=== PATIENT | female | born 1990 | race Hispanic/Latino ===

== ENCOUNTER 2019-09-20 22:23 | Emergency (ER) | payer MEDICARE, OTHER ==
[~2019-09-20] VITALS: Ht 147.3 cm; Wt 40.5 kg
[2019-09-21 00:15] VITALS: BP 120/72
== END 2019-09-21 00:15 | disposition home or self-care (01) ==
LOC: M ED 22:23
DX: T82.838A Hemorrhage due to vascular prosthetic devices, implants and grafts, initial encounter (principal); Y92.9 Unspecified place or not applicable; Y93.9 Activity, unspecified; N18.6 End stage renal disease